=== PATIENT | male | born 1945 | race Caucasian/White ===

== ENCOUNTER 2016-08-30 21:45 | Inpatient (IN) | payer BC ==
--- NOTE | ~2016-08-30 | DS ---
Discharge Summary [facility] [address] [place]. [address] NAME: HAKEEM DOE : 45 STATUS : DIS IN PAT#: [id number] AGE: 71 ADM/REG DATE : 08/31/16 MR#: [id number] REPORT SERV DATE: 09/02/16 DICTATED BY: GIOVANNA JOHANSEN DATE: 09/01/16 REPORT STATUS : Draft TRANSCRIBED BY: MODL DATE: 09/01/16 ADMISSION DATE: 08/31/2016 DISCHARGE DATE: 09/01/2016 DISCHARGE DIAGNOSES: 1. Acute hypoxic respiratory failure. 2. Acute exacerbation of chronic obstructive pulmonary disease. 3. Left lower lobe community-acquired pneumonia. 4. Previous right leg deep venous thrombosis with pulmonary embolism 2009 after knee surgery. 5. Hypertension. 6. Obstructive sleep apnea, awaiting titration of new CPAP or BiPAP. 7. Rheumatoid arthritis on Humira and recent prednisone. 8. History of mild cognitive impairment with previous episodes of metabolic encephalopathy during acute illness. 9. Mild steroid-induced diabetes mellitus type 2. 10.Chronic pain with rheumatoid arthritis. 11.Obesity with body mass index 42.3. HISTORY: This patient had the abrupt onset on 08/30/2016 after work of chills, shortness of breath, and a new cough with yellow sputum. He got very short of breath. He was brought to the emergency room at [facility]. On presentation, he was on 15 L supplemental oxygen. They placed him on BiPAP. Gave him some Rocephin and azithromycin and supplemental oxygen. He also reportedly received some steroid Solu-Medrol by the EMS, and he improved and was referred to our team for inpatient care. IMAGING: Included a chest x-ray that revealed cardiomegaly, left greater than right bibasilar atelectasis. CTA of the chest on 08/31/2016 revealed no evidence for pulmonary embolism, patchy nodular infiltrate, left lower lobe most consistent with acute pneumonia, minor subsegmental atelectasis right lung base, borderline cardiomegaly, stable fusiform aneurysmal change ascending thoracic aorta 4.2 cm diameter, small cyst upper pole right kidney. His procalcitonin was elevated at 0.51 on 08/31/2016. By 09/01/2016, it was in the normal range of 0.35. His white blood count on presentation was elevated at 15.2. He states he had been taking some prednisone tablets for rheumatoid arthritis recently. By August 31, his white count was 20.1, but he had received Solu-Medrol. By September 01, his white count was 14.1. The patient remained afebrile. He remained calm. His O2 saturations improved. He was weaned off oxygen. Prior to discharge, he will have ambulatory O2 saturations monitored to see if he needs any supplemental oxygen for the short term. He admits that he takes prescription Advair Diskus 250/50 twice a day, and he has a rescue inhaler, but he is not sure if he is on it for asthma or if he is on it for COPD. Patient used to smoke but quit over 25 years ago. He did have an arterial blood gas on admission showing pH 7.46, pCO2 of 39, pO2 of 73, bicarbonate 26.9. This was on 100% oxygen reportedly which would mean he had a very large AA gradient. I wonder about the accuracy of that because thereafter, he was oxygenating Discharge Summary [address] [place]. [address] NAME: HAKEEM DOE : 45 STATUS : DIS IN PAT#: [id number] AGE: 71 ADM/REG DATE : 08/31/16 MR#: [id number] REPORT SERV DATE: 09/02/16 DICTATED BY: GIOVANNA JOHANSEN DATE: 09/01/16 REPORT STATUS : Draft TRANSCRIBED BY: STACEY DATE: 09/01/16 very well on 2 L and then on room air. DISCHARGE MEDICATIONS: Include aspirin 81 mg daily, BuSpar 5 mg twice a day, Duragesic 50 mg patch he changes every 72 hours (he states he has been weaned off this), folic acid 1 mg daily, Avapro 300 mg daily, methotrexate 15 mg every Tuesday, KCl 10 mEq twice a day, Demadex 100 mg daily, Mirapex 0.25 mg at bedtime, Humira 40 mg subcu every 14 days, Zoloft 100 mg daily, prednisone 40 mg daily for four more days, then stop. Advair Diskus 250/50 a puff twice a day, Tylenol 650 q.6 hours p.r.n. mild pain, Roxicodone he takes between 10 and 20 mg four times a day p.r.n. pain which is a chronic medicine for him. He also reportedly takes a probiotic daily, and we will have him take azithromycin 500 mg orally through 09/04/2016. He was on azithromycin plus Rocephin while here. Blood cultures here in the hospital had no growth. His last sleep study with Dr. Stanley in May indicated that the patient's home CPAP was not adequately taking care of his obstructive sleep apnea, and Dr. Stanley recommended a repeat longer sleep study to titrate BiPAP. The patient and and I discussed this, and he is going to get that scheduled soon. He has a followup with Dr. Muñoz on 09/03/2016. I spent 37 minutes today with the patient with discharge planning. RSG/MODL Giovanna Johansen M.D. / [id number] CC: Deepak Munson M.D. Richard Brackett, M.D. MD John Schulz DO Vincent Viscomi, M.D., F.C.C.P.
--- NOTE | ~2016-08-30 | HP ---
History And Physical [place] [id number] [facility] [place]. [address] NAME: HAKEEM DOE : 45 STATUS : ADM IN [facility]#: [id number] AGE: 71 ADM/REG DATE : 08/31/16 MR#: [id number] REPORT SERV DATE: 08/31/16 DICTATED BY: VISHAL OSMAN DATE: 08/30/16 REPORT STATUS : Draft TRANSCRIBED BY: MODL DATE: 08/30/16 DATE OF ADMISSION: 08/31/2016 CHIEF COMPLAINT: Shortness of breath. HISTORY OF PRESENT ILLNESS: This is a 71-year-old gentleman with history of hypertension, hyperlipidemia, COPD, PE, amongst many other medical problems, presenting with a shortness of breath. The patient reports that he was apparently feeling fine up until 2 p.m. 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 Shortly after he came home, the patient started developing a shortness of breath along with some cough. The cough itself was nonproductive, and he did have a mild cough over the past two to three days that acutely worsened with the shortness of breath. The patient then developed a quite significant respiratory distress, and thus he was immediately brought to the ER for further evaluation and care. In the ER, the patient was found to be afebrile. The patient was initially quite tachycardic and tachypneic and in an obvious respiratory distress and thus he was immediately put on BiPAP. Initial lab evaluation revealed a white blood cell count of 15.2, but otherwise, benign labs. Chest x-ray revealed a potential left lower lobe pneumonia. Interestingly, with the BiPAP, the patient's respiratory distress improved significantly, and by the time of my encounter with the patient, the patient was off BiPAP, and he was on 4 L of oxygen saturating 100% on room air without any respiratory distress. REVIEW OF SYSTEMS: The patient denies any fevers or chills. Also, 14-point review of systems reviewed and negative other than mentioned above. MEDICATIONS: 1. Potassium chloride 10 mEq p.o. b.i.d. 2. Mirapex 0.25 mg p.o. q.h.s. 3. Advair one puff inhaled twice daily. 4. Humira 40 mg subcu every 14 days. 5. Methotrexate 15 mg p.o. Saturdays. 6. Demadex 100 mg p.o. daily. 7. Folic acid 1 mg p.o. daily. 8. Zoloft 100 mg p.o. daily. 9. Avapro 300 mg p.o. daily. 10.Fentanyl patch every 72 hours 50 mcg/hour. 11.BuSpar 5 mg p.o. b.i.d. 12.Oxycodone 10 mg to 20 mg p.o. four times daily p.r.n. 13.Aspirin 81 mg p.o. daily. 14.Probiotic one capsule p.o. daily. ALLERGIES: NKDA. PAST MEDICAL HISTORY: History And Physical [address] [address] NAME: HAKEEM DOE : 45 STATUS : ADM IN [facility]#: [id number] AGE: 71 ADM/REG DATE : 08/31/16 MR#: [id number] REPORT SERV DATE: 08/31/16 DICTATED BY: VISHAL OSMAN DATE: 08/30/16 REPORT STATUS : Draft TRANSCRIBED BY: STACEY DATE: 08/30/16 1. Hypertension. 2. Hyperlipidemia. 3. History of pericarditis requiring pericardial window about three years ago. 4. COPD, not on any oxygen at baseline. 5. Depression. 6. History of PE after a knee surgery. 7. Rheumatoid arthritis. 8. Mild dementia with episodes of confusion whenever he gets sick. Otherwise, the patient still works as an accountant manager. PAST SURGICAL HISTORY: 1. Bilateral knee replacements. 2. Eye surgeries. 3. Pericardial window. FAMILY HISTORY: 1. Heart diseases. 2. CVAs. 3. Lupus. SOCIAL HISTORY: The patient does not smoke, drink alcohol, or use any illicit drugs. 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 PHYSICAL EXAMINATION: VITAL SIGNS: Temperature 98.2, blood pressure 155/94, pulse 119, respiratory rate is 24, saturating 95% on 15 L of oxygen per BiPAP, but again by the time of my encounter with the patient, the patient was on 4 L of oxygen, doing really well. NEURO: The patient is alert and oriented x3 with no focal neurologic deficits. GENERAL: The patient is awake, does not appear to be in acute distress, and he is cooperative. NECK: No JVD. No lymphadenopathy. Normal thyroid. CHEST: No midline sternotomy scar and no tenderness to palpation. LUNGS: Clear to auscultation bilaterally. The patient does not have any wheezes and no crackles. The patient is on 4 L of oxygen per nasal cannula and he has no respiratory distress. CARDIOVASCULAR: The patient is slightly tachycardic, but otherwise, no murmurs, rubs, or gallops, and PMI is nondisplaced. ABDOMEN: Soft, nontender, with active bowel sounds and no organomegaly. EXTREMITIES: No edema. Normal distal pulses. No calf tenderness. SKIN: Clean, dry, warm, and intact. LABORATORY DATA: Sodium is 140, potassium 4.3, chloride 100, BUN 18, creatinine 0.82, glucose 80, calcium 8.7. LFTs are within normal limits. White blood cell count is 15.2, hemoglobin 13.0, platelets 178. INR is 1.1. Troponin is 0.06. BNP is 49.6. Lactate was 1.0. Flu panel was negative for influenza A and B. Urinalysis was negative. Chest x-ray is personally interpreted and it shows potential left lower lobe pneumonia, but History And Physical [address] [place]. [address] NAME: HAKEEM DOE : 45 STATUS : ADM IN [facility]#: [id number] AGE: 71 ADM/REG DATE : 08/31/16 MR#: [id number] REPORT SERV DATE: 08/31/16 DICTATED BY: VISHAL OSMAN DATE: 08/30/16 REPORT STATUS : Draft TRANSCRIBED BY: MODIsaias DATE: 08/30/16 nothing really obvious actually and recent echocardiogram from 07/26/2016 showed ejection fraction of 50% with mild diastolic congestive heart failure and normal RV function. ASSESSMENT: This is a 71-year-old gentleman with history of chronic obstructive pulmonary disease, hypertension, hyperlipidemia, pericarditis, amongst many other medical conditions, presenting with an acute hypoxic respiratory failure. 1. Acute hypoxic respiratory failure, to a point of requiring BiPAP, but the patient has made very rapid recovery and now on 4 L of oxygen per nasal cannula. At baseline, he is not requiring any oxygen. 2. Community-acquired pneumonia with sepsis. 3. Baseline chronic obstructive pulmonary disease, however, the patient does not appear to be in chronic obstructive pulmonary disease exacerbation as he has quite clear lung escobar. 4. Encephalopathy, with history of sundowning and mild dementia whenever he gets sick. Otherwise, at baseline, the patient still works as an accountant manager. 5. Hypertension. 6. Hyperlipidemia. 7. Rheumatoid arthritis. 8. History of pericarditis requiring pericardial window. 9. History of pulmonary edema. PLAN: My plan is to admit the patient under telemetry monitoring. The patient will be given oxygen support and bronchodilator therapy. The patient will also be treated with IV antibiotics to cover community-acquired pneumonia. I will complete infectious workup to include blood cultures, sputum cultures, and checking a procalcitonin level. I will also check urinary antigens for Strep and Legionella. The patient will also be given gentle IV fluid resuscitation, and I will closely monitor electrolytes and daily labs to include CBC, electrolytes, and renal function. Otherwise, for the rest of stable past medical conditions, including hypertension, hyperlipidemia, COPD, et al., I will continue home medications. Standard DVT prophylaxis. The patient is full code at this time. YSNita/STACEY Vishal Osman MD / [id number] CC: Deepak Nieto M.D.
[~2016-08-30 21:45] MED LIST: ADVAI; ADVAIR; ADVAIR100 INH; ADVAIR115P INH; ADVAIR250 INH; ALLEGRA180 PO; AMB10 PO; AMBIEN; AMIT25 PO; AMIT50 PO; AMLODIPINE BESYLATE PO; ASTELIN NAS; C2 PO; CALTRA600D PO; COLCH6 PO; DORZOL/TIMOL1 ML OPH; EMBEDA1 CA2 PO; EMBREL; EMBREL PO; ENBREL50 MG/M1 SC; EXELON9.5T TOP; FEXOFENADINE180 MG OR; FIBERCON PO; FOLIC PO; GRA OPH; HUMIRA INJECTION; KLONO1 PO; KLONO5 PO; L40 PO; LEVAQUIN5T PO; LIPITOR20 PO; LISINOPRIL40 MG PO; LORTAB 5 PO; MEDROLPAK4 PO; MOMETASONE0.11 EX; MTX2.5 PO; NAMENXR28 PO; NEO OPH; NOR10 PO; NOR25 PO; NORV5 PO; ORAZINC110 MG PO; OXYCODONE; OXYCON10 PO; P10 PO; P20 PO; PERCOCET1 TA4 PO; POLY OPH; PREDNISONE PO; PRILO PO; PRILOSEC; PRILOSEC OTC20 MG PO; PRIN20 PO; PROAIR HFA INH; PROTONIX PO; PROZAC40 MG PO; SUPER B COMP PO; SYMBICORT 160/41 INH INH; V5 PO; VIAGRA100 MG PO; VITAMIN A8000 UNIT PO; VITAMIN D PO; XARELTO20 MG PO; ZITHROMAX500 MG PO; ZOLPIDEM; [UNRECOGNIZED DRUG - CODE] PO; [UNRECOGNIZED DRUG - OTHER] OP
[2016-08-30 21:49] LABS: BASOPHILS 0.1 %; BASOPHILS ABSOLUTE 0.02 10/3/uL (0.0-0.16); EOSINOPHILS 1.3 %; ER CBC TAT 0 Hrs 08 Mins; HEMATOCRIT 40.5 % (40.0-51.0); IMMATURE GRANULOCYTES 0.1 %; IMMATURE GRANULOCYTES ABSOLUTE 0.02 10/3/uL (0.0-0.11); LYMPHOCYTES ABSOLUTE 1.68 10/3/uL (0.67-4.30); MANUAL DIFF NO %; MEAN CORPUS HGB CONC 32.1 g/dL (32.0-36.0); MEAN CORPUSCULAR HEMOGLOB 29.2 pg (26.0-34.0); MEAN PLATELET VOLUME 9.2 fL (9.2-13.0); MONOCYTES 4.5 %; MONOCYTES ABSOLUTE 0.68 10/3/uL (0.21-1.20); NEUTROPHILS ABSOLUTE 12.62 10/3/uL (2.02-8.40); PLATELET COUNT 178 10/3/uL (150-400); RBC DISTRIBUTION WIDTH 15.9 % (12.0-16.0); RED CELL COUNT 4.45 10/6/uL (4.7-6.1); WHITE BLOOD CELLS 15.2 10/3/uL (4.5-10.5)
[2016-08-30] MEDS ORDERED: K-TABS10 MEQ PO (21:55)
[2016-08-30] MEDS ORDERED: MIRAPEX250 PO (21:56)
[2016-08-30] MEDS ORDERED: ADVAIR250 INH (21:56)
[2016-08-30 21:57] LABS: INTERNATIONAL NORMAL RATI 1.1 UNITS (-)
[2016-08-30 21:58] LABS: PARTIAL THROMBO TIME 30.9 SEC (22.5-37.2)
[2016-08-30] MEDS ORDERED: HUMIRA PEN SC (22:00)
[2016-08-30] MEDS ORDERED: MTX2.5 PO (22:00)
[2016-08-30] MEDS ORDERED: DEMA100 PO (22:01)
[2016-08-30] MEDS ORDERED: AVAPRO300 MG PO (22:02)
[2016-08-30] MEDS ORDERED: DURA50 TOP (22:02)
[2016-08-30] MEDS ORDERED: ZOL100 PO (22:02)
[2016-08-30] MEDS ORDERED: FOLIC PO (22:02)
[2016-08-30] MEDS ORDERED: BUSPAR5 PO (22:03)
[2016-08-30] MEDS ORDERED: OXYCOD PO (22:03)
[2016-08-30] MEDS ORDERED: ASAB PO (22:04)
[2016-08-30] MEDS ORDERED: PROBIOTIC PO (22:04)
[2016-08-30 22:08] LABS: ALBUMIN 3.3 G/DL (3.5-5.0); CALCIUM, SERUM 8.7 MG/DL (8.5-10.4); CHLORIDE, SERUM 100 MMOL/L (96-112); CREATININE 0.82 MG/DL (0.70-1.30); GFR AFRICAN AMERICAN 103 ML/MIN (>=60); GFR NON AFRICAN AMERICAN 89 ML/MIN (>=60); GLUCOSE, SERUM 80 MG/DL (60-99); POTASSIUM, SERUM 4.3 MMOL/L (3.5-5.3); SGOT(AST) 16 U/L (5-40); SGPT(ALT) 21 U/L (5-65); SODIUM, SERUM 140 MMOL/L (135-148); TOTAL BILIRUBIN 0.5 MG/DL (0-1.2); TOTAL PROTEIN 6.7 G/DL (6.0-8.5)
[2016-08-30 22:09] LABS: ALKALINE PHOSPHATASE 94 U/L (45-117); BUN (BLOOD UREA NITROGEN) 18 MG/DL (6-23); CO2 (CARBON DIOXIDE) 33 MMOL/L (24-34); GLOBULIN 3.4 G/DL (2.5-4.1); TROPONIN I 0.06 NG/ML (<0.05)
[2016-08-30 22:14] LABS: INFLUENZA A SCREEN NEGATIVE (NEGATIVE); INFLUENZA B SCREEN NEGATIVE (NEGATIVE)
[2016-08-30 22:45] LABS: ASCORBIC ACID (UR NOT ORDER) NEG (NEG); BILIRUBIN, URINE NEGATIVE (NEG); ER URINALYSIS TAT 0 Hrs 19 Mins; KETONE, URINE NEGATIVE (NEG); LEUKOCYTE ESTERASE(NOT OR TRACE (NEG); NITRITE (URINE) NEG (NEG); WBC (NOT ORDERED) (RFLEX) 4 (0-5)
[2016-08-31 06:10] LABS: BASOPHILS 0 %; EOSINOPHILS 0 %; HEMATOCRIT 41.4 % (40.0-51.0); HEMOGLOBIN 13.2 g/dL (13.6-17.8); IMMATURE GRANULOCYTES 0.3 %; IMMATURE GRANULOCYTES ABSOLUTE 0.06 10/3/uL (0.0-0.11); MANUAL DIFF NO %; MEAN CORPUS HGB CONC 31.9 g/dL (32.0-36.0); MEAN PLATELET VOLUME 8.8 fL (9.2-13.0); MONOCYTES 1.2 %; MONOCYTES ABSOLUTE 0.24 10/3/uL (0.21-1.20); NEUTROPHILS 96.5 %; NEUTROPHILS ABSOLUTE 19.35 10/3/uL (2.02-8.40); PLATELET COUNT 166 10/3/uL (150-400); RED CELL COUNT 4.55 10/6/uL (4.7-6.1); WHITE BLOOD CELLS 20.1 10/3/uL (4.5-10.5)
[2016-08-31 06:31] LABS: BUN (BLOOD UREA NITROGEN) 18 MG/DL (6-23); CALCIUM, SERUM 8.8 MG/DL (8.5-10.4); CHLORIDE, SERUM 102 MMOL/L (96-112); CO2 (CARBON DIOXIDE) 27 MMOL/L (24-34); CREATININE 0.99 MG/DL (0.70-1.30); GFR AFRICAN AMERICAN 88 ML/MIN (>=60); GFR NON AFRICAN AMERICAN 76 ML/MIN (>=60); GLUCOSE, SERUM 231 MG/DL (60-99); POTASSIUM, SERUM 3.9 MMOL/L (3.5-5.3); SODIUM, SERUM 139 MMOL/L (135-148); TROPONIN I 0.74 NG/ML (<0.05)
[2016-08-31 06:58] LABS: PROCALCITONIN 0.51 ng/mL (<0.5)
[2016-08-31 07:16] LABS: BE (BASE EXCESS) 2.9 MEQ/L (0 +/- 2.5); INSTRUMENT SERIAL # 8087; PCO2 (CO2 TENSION) 39 MMHG (35-45); PO2 (O2 TENSION) 73 MMHG (79-93); pH 7.46 (7.37-7.43)
[2016-08-31 07:17] LABS: CARBOXYHEMOGLOBIN 1.6 % (0-3); HCO3 (ACTUAL BICARBONATE) 26.9 MEQ/L (23-27); HEMOBLOGIN CONTENT 14.1 G/DL (14-18); METHEMOGLOBIN 0.4 % (0-3); O2 CONTENT 18.7 VOL% (18-24); SAMPLE Arterial
[2016-09-01 05:26] LABS: BASOPHILS 0 %; EOSINOPHILS 0 %; HEMATOCRIT 41.3 % (40.0-51.0); HEMOGLOBIN 13.2 g/dL (13.6-17.8); IMMATURE GRANULOCYTES 0.2 %; IMMATURE GRANULOCYTES ABSOLUTE 0.03 10/3/uL (0.0-0.11); LYMPHOCYTES 6.7 %; LYMPHOCYTES ABSOLUTE 0.95 10/3/uL (0.67-4.30); MEAN CORPUSCULAR VOLUME 90.8 fL (80-100); MEAN PLATELET VOLUME 9.2 fL (9.2-13.0); MONOCYTES 4.4 %; MONOCYTES ABSOLUTE 0.62 10/3/uL (0.21-1.20); NEUTROPHILS 88.7 %; NEUTROPHILS ABSOLUTE 12.52 10/3/uL (2.02-8.40); PLATELET COUNT 194 10/3/uL (150-400); RED CELL COUNT 4.55 10/6/uL (4.7-6.1); WHITE BLOOD CELLS 14.1 10/3/uL (4.5-10.5)
[2016-09-01 05:30] LABS: MANUAL DIFF NO %
[2016-09-01 05:42] LABS: CALCIUM, SERUM 8.9 MG/DL (8.5-10.4); CHLORIDE, SERUM 100 MMOL/L (96-112); CREATININE 0.88 MG/DL (0.70-1.30); GFR AFRICAN AMERICAN 100 ML/MIN (>=60); GFR NON AFRICAN AMERICAN 86 ML/MIN (>=60); POTASSIUM, SERUM 3.7 MMOL/L (3.5-5.3); SODIUM, SERUM 142 MMOL/L (135-148)
[2016-09-01 05:51] LABS: BUN (BLOOD UREA NITROGEN) 25 MG/DL (6-23); CO2 (CARBON DIOXIDE) 33 MMOL/L (24-34); GLUCOSE, SERUM 141 MG/DL (60-99)
[2016-09-01 06:42] LABS: PROCALCITONIN 0.35 ng/mL (<0.5)
[2016-09-01] MEDS ORDERED: ZITHROMAX500 MG PO (09:59)
[2016-09-01] MEDS ORDERED: P20 PO (10:00)
[2016-09-01] MEDS ORDERED: T PO (10:02)
== END 2016-09-01 13:06 | disposition home or self-care (01) | DRG 871 ==
LOC: ER 21:45 → 1SO 08-31 00:03
PROVIDERS: Hospitalist; Internal Medicine; Nurse Practitioner Acute Care
PROC: 5A09357 Assistance with Respiratory Ventilation, Less than 24 Consecutive Hours, Continuous Positive Airway Pressure (ICD-10-PCS; principal; 2016-08-31)
DX: A41.9 Sepsis, unspecified organism (principal); J96.01 Acute respiratory failure with hypoxia; G93.40 Encephalopathy, unspecified; J18.1 Lobar pneumonia, unspecified organism; F05 Delirium due to known physiological condition; J44.0 Chronic obstructive pulmonary disease with (acute) lower respiratory infection; Z68.41 Body mass index [BMI] 40.0-44.9, adult; J44.1 Chronic obstructive pulmonary disease with (acute) exacerbation; F03.90 Unspecified dementia, unspecified severity, without behavioral disturbance, psychotic disturbance, mood disturbance, and anxiety; G31.84 Mild cognitive impairment of uncertain or unknown etiology; E09.9 Drug or chemical induced diabetes mellitus without complications; I10 Essential (primary) hypertension; G47.33 Obstructive sleep apnea (adult) (pediatric); G89.29 Other chronic pain; M06.9 Rheumatoid arthritis, unspecified; N28.1 Cyst of kidney, acquired; T38.0X5A Adverse effect of glucocorticoids and synthetic analogues, initial encounter; E78.5 Hyperlipidemia, unspecified; F32.9 Major depressive disorder, single episode, unspecified; E66.9 Obesity, unspecified; Z87.891 Personal history of nicotine dependence; Z86.711 Personal history of pulmonary embolism; Z86.718 Personal history of other venous thrombosis and embolism; Z96.653 Presence of artificial knee joint, bilateral; Z79.82 Long term (current) use of aspirin; Z79.891 Long term (current) use of opiate analgesic; Z79.899 Other long term (current) drug therapy
CPT/HCPCS: 36600; 71010; 71275; 80048; 80053; 81001; 82805; 82962; 83605; 83880; 84145; 84484; 85025; 85610; 85730; 87040; 87070; 87205; 87449; 87804; 93005; 94640; 96374; 99285; A9270-GY; J0456; Q9967